=== PATIENT | male | born 1955 | race Two or more races ===

== ENCOUNTER 2023-02-17 21:09 | Emergency (ER) | payer OTHER ==
[~2023-02-17] VITALS: Ht 175.3 cm; Wt 77.1 kg
== END 2023-02-18 01:02 | disposition home or self-care (01) ==
LOC: ER 21:09
DX: I10 Essential (primary) hypertension (principal)

== ENCOUNTER 2023-04-28 05:42 | Emergency (ER) | payer OTHER ==
[~2023-04-28] VITALS: Ht 170.2 cm; Wt 81.6 kg
[2023-04-28] MEDS ORDERED: COZAAR25 MG PO (05:57)
[2023-04-28] MEDS ORDERED: EZALLOR SPRINKLE5 MG PO (05:57)
== END 2023-04-28 09:45 | disposition home or self-care (01) ==
LOC: ER 05:42
DX: I10 Essential (primary) hypertension (principal)